=== PATIENT | male | born 1945 | race Caucasian/White ===

== ENCOUNTER 2020-12-30 06:05 | Observation (INO) ==
[~2020-12-30 06:05] MED LIST: DIAZEPAM 5 MG TABLET PO ONE; MAGNESIUM SULF RIDER 2 GM/50 ML PREMIX IV PRN; POTASSIUM CHLORIDE RIDER 10 MEQ/100 ML PREMIX IV PRN; diphenhydrAMINE CAP 25 MG CAPSULE PO ONE
[2020-12-30] MEDS ORDERED: DIAZEPAM 5 MG TABLET ONE (06:43)
[2020-12-30] MEDS ORDERED: diphenhydrAMINE CAP 25 MG CAPSULE ONE (06:43)
[2020-12-30] MEDS: SODIUM CHLORIDE 0.9% 1,000 ML IV SCH ×3 (07:02→23:53)
[2020-12-30 07:20] LABS: Calcium 8.9 MG/DL (8.5-10.1)
[2020-12-30] MEDS ORDERED: GLUCAGON 1 MG VIAL IM PRN (09:40)
[2020-12-30] MEDS ORDERED: NITROGLYCERIN SL 0.4 MG TABLET SL PRN (09:40)
[2020-12-30] MEDS ORDERED: ACETAMINOPHEN 325 MG TABLET PO PRN (09:40)
[2020-12-30] MEDS ORDERED: ONDANSETRON 4 MG/2 ML VIAL IV PRN (09:40)
[2020-12-30] MEDS ORDERED: DEXTROSE 50% 25 GM/50 ML VIAL IV PRN (09:40)
[2020-12-30] MEDS ORDERED: ALBUTEROL 2.5 MG/3 ML NEB RESP TX PRN (09:46)
[2020-12-30] MEDS: cilostazoL 50 MG TABLET PO SCH ×2 (10:14→21:43)
[2020-12-30] MEDS: THEOPHYLLINE ER 300 MG TABLET PO SCH ×2 (10:14→21:43)
[2020-12-30] MEDS ORDERED: hydrALAZINE 20 MG/1 ML VIAL IV ONE (10:37)
[2020-12-30] MEDS ORDERED: cloNIDine 0.1 MG TABLET PO ONE (10:37)
[2020-12-30] MEDS ORDERED: hydrALAZINE 20 MG/1 ML VIAL ONE (10:44)
[2020-12-30] MEDS ORDERED: cloNIDine 0.1 MG TABLET ONE (10:44)
[2020-12-30] MEDS: SIMVASTATIN 20 MG TABLET PO SCH (10:55)
[2020-12-30] MEDS: FENOFIBRATE 160 MG TABLET PO SCH (10:55)
[2020-12-30] MEDS: TAMSULOSIN 0.4 MG CAPSULE PO SCH (10:55)
[2020-12-30] MEDS: LOSARTAN 50 MG TABLET PO SCH (10:55)
[2020-12-30] MEDS ORDERED: glipiZIDE 10 MG TABLET PO SCH (11:00)
[2020-12-30] MEDS: GABAPENTIN 400 MG CAPSULE PO SCH ×2 (14:56→21:43)
[2020-12-30] MEDS ORDERED: OXYMETAZOLINE 0.05% NASAL SPRAY 15 ML BOTTLE BOTH NARES PRN (16:11)
[2020-12-30] MEDS: INSULIN REGULAR 100 UNIT/ML SUBCUT SCH ×3 (16:26→21:42)
[2020-12-30] MEDS ORDERED: PANTOPRAZOLE 40 MG TABLET PO SCH (19:00)
[2020-12-30] MEDS: TICAGRELOR 90 MG TABLET PO SCH (21:42)
[2020-12-30] MEDS: METOPROLOL TARTRATE 25 MG TABLET PO SCH (21:43)
[2020-12-30] MEDS: glipiZIDE 10 MG TABLET PO SCH (21:43)
[2020-12-30] MEDS: PANTOPRAZOLE 40 MG TABLET PO SCH (21:43)
[2020-12-31 05:26] LABS: Basophils % 0.3 % (0.0-0.8); Eosinophils # 0.2 10*3/uL (0.0-0.87); Hematocrit 27.9 VOL% (42.0-52.0); Hemoglobin 8.9 GM/DL (14.0-18.0); Immature Granulocytes % 0.7 %; Immature Granulocytes Absolute 0.06 #; Lymphocytes # 2.1 10*3/uL (1.4-4.0); Lymphocytes % 22.9 % (21.2-54.2); Mean Corpuscular HGB Conc 31.9 GM/DL (32-36); Mean Corpuscular Volume 92.4 FL (87-102); Mean Platelet Volume 9.3 FL (9.6-12.0); Monocytes % 9.9 % (1.7-12.7); Neutrophils % 64.2 % (38.7-73.9); Platelet Count 235 T/CUMM (130-400); Red Blood Count 3.02 MC/CUMM (3.8-5.5); Red Cell Distribution Width 14.5 % (9.3-17.3); White Blood Count 9.2 T/CUMM (4-12)
[2020-12-31 05:58] LABS: Blood Urea Nitrogen 28 MG/DL (7-18); Calcium 8.5 MG/DL (8.5-10.1); Carbon Dioxide 22 MMOL/L (21-32); Estimated Glom Filtration Rate 45 ML/MIN; Glucose 180 MG/DL (74-106); HDL Cholesterol 33 MG/DL (40-60); Osmolality,Calculated 289.4 MOS/KG (273-304); Potassium 4.5 MMOL/L (3.5-5.1); Risk Ratio 3.52; Sodium 140 MMOL/L (136-145); Triglycerides 162 MG/DL (2-150); VLDL Cholesterol 32.4 MG/DL
[2020-12-31] MEDS: SODIUM CHLORIDE 0.9% 1,000 ML IV SCH ×5 (06:45→16:38)
[2020-12-31] MEDS: THEOPHYLLINE ER 300 MG TABLET PO SCH ×2 (09:45→20:59)
[2020-12-31] MEDS: FENOFIBRATE 160 MG TABLET PO SCH (09:45)
[2020-12-31] MEDS: GABAPENTIN 400 MG CAPSULE PO SCH ×3 (09:45→20:58)
[2020-12-31] MEDS: TICAGRELOR 90 MG TABLET PO SCH ×2 (09:46→20:59)
[2020-12-31] MEDS: cilostazoL 50 MG TABLET PO SCH ×2 (09:46→20:59)
[2020-12-31] MEDS: SIMVASTATIN 20 MG TABLET PO SCH (09:46)
[2020-12-31] MEDS: LOSARTAN 50 MG TABLET PO SCH (09:46)
[2020-12-31] MEDS: glipiZIDE 10 MG TABLET PO SCH ×2 (09:46→20:59)
[2020-12-31] MEDS: METOPROLOL TARTRATE 25 MG TABLET PO SCH ×2 (09:46→20:59)
[2020-12-31] MEDS: INSULIN REGULAR 100 UNIT/ML SUBCUT SCH ×4 (09:47→20:59)
[2020-12-31] MEDS: TAMSULOSIN 0.4 MG CAPSULE PO SCH (09:48)
[2020-12-31] MEDS: PANTOPRAZOLE 40 MG TABLET PO SCH (20:59)
[2021-01-01] MEDS: SODIUM CHLORIDE 0.9% 1,000 ML IV SCH ×2 (01:02→03:53)
[2021-01-01 06:05] LABS: Calcium 8.6 MG/DL (8.5-10.1); Osmolality,Calculated 293.8 MOS/KG (273-304); Potassium 4.5 MMOL/L (3.5-5.1)
[2021-01-01] MEDS: INSULIN REGULAR 100 UNIT/ML SUBCUT SCH (07:41)
[2021-01-01 08:30] VITALS: BP 153/60
[2021-01-01] MEDS: TAMSULOSIN 0.4 MG CAPSULE PO SCH (09:17)
[2021-01-01] MEDS: glipiZIDE 10 MG TABLET PO SCH (09:17)
[2021-01-01] MEDS: cilostazoL 50 MG TABLET PO SCH (09:17)
[2021-01-01] MEDS: METOPROLOL TARTRATE 25 MG TABLET PO SCH (09:18)
[2021-01-01] MEDS: GABAPENTIN 400 MG CAPSULE PO SCH (09:18)
[2021-01-01] MEDS: TICAGRELOR 90 MG TABLET PO SCH (09:18)
[2021-01-01] MEDS: THEOPHYLLINE ER 300 MG TABLET PO SCH (09:18)
[2021-01-01] MEDS: LOSARTAN 50 MG TABLET PO SCH (09:18)
[2021-01-01] MEDS: FENOFIBRATE 160 MG TABLET PO SCH (09:18)
[2021-01-01] MEDS: SIMVASTATIN 20 MG TABLET PO SCH (09:18)
== END 2021-01-01 10:20 | disposition home or self-care (01) ==
LOC: N.TELES 06:05 → N.CL 06:05 → N.TELES 15:50
PROVIDERS: ADMIT Internal Medicine Cardiovascular Disease; ATTEND Internal Medicine Cardiovascular Disease